=== PATIENT | female | born 1945 | race Caucasian/White ===

== ENCOUNTER → 2017-09-10 | Emergency (ER) | payer OTHER | END | disposition home or self-care (01) | LOC: ER 08:40 | DX: K52.9 Noninfective gastroenteritis and colitis, unspecified (principal); J11.1 Influenza due to unidentified influenza virus with other respiratory manifestations ==

== ENCOUNTER 2022-01-10 07:29 | Day surgery (SDC) | payer OTHER ==
[~2022-01-10] VITALS: Ht 152.4 cm; Wt 68.0 kg
== END 2022-01-10 16:00 | disposition home or self-care (01) ==
LOC: CIR.AMB 07:29
PROVIDERS: ATTEND Orthopaedic Surgery Hand Surgery
DX: S52.532A Colles' fracture of left radius, initial encounter for closed fracture (principal); Z88.0 Allergy status to penicillin; Z20.822 Contact with and (suspected) exposure to COVID-19; Z88.2 Allergy status to sulfonamides; E07.89 Other specified disorders of thyroid